=== PATIENT | male | born 1940 | race African-American/Black ===

== ENCOUNTER 2020-10-17 14:13 | Emergency (ER) | payer OTHER ==
[2020-10-17 14:25] VITALS: TEMP 97.8; BMI 25.5
[2020-10-17 16:07] LABS: HEMATOCRIT 36.5 % (35.4-49); HEMOGLOBIN 12.2 GM/dL (11.7-16.9); MCH 32.3 pg (25.7-33.7); MCHC 33.5 g/dl (32.0-35.9); MEAN CELL VOLUME 96.6 fl (80-96); MEAN PLT VOLUME 6.8 fl (7.5-11.1); PLATELET COUNT 230 K/MM3 (134-434); RBC 3.77 M/mm3 (4.00-5.60); RDW 13.4 % (11.9-15.9); WHITE BLOOD COUNT 2.8 K/mm3 (4.0-10.0)
[2020-10-17 16:30] LABS: CHLORIDE 105 mmol/L (98-107); POTASSIUM 4.4 mmol/L (3.5-5.1); SODIUM 139 mmol/L (136-145)
[2020-10-17 16:32] LABS: CALCIUM 9.4 mg/dL (8.5-10.1)
[2020-10-17 16:33] LABS: ALBUMIN 3.5 g/dl (3.4-5.0); ANION GAP 3 MMOL/L (8-16); BLOOD UREA NITROGEN 21.6 mg/dL (7-18); CO2 31 mmol/L (21-32); GLUCOSE,RANDOM 111 mg/dL (74-106); MAGNESIUM 1.8 mg/dL (1.8-2.4)
[2020-10-17 16:35] LABS: CREATININE 0.8 mg/dL (0.55-1.3); SGOT/AST 29 U/L (15-37); SGPT/ALT 38 U/L (13-61)
[2020-10-17 16:37] LABS: BILIRUBIN,TOTAL 0.4 mg/dL (0.2-1); TOT PROT 6.6 g/dl (6.4-8.2)
[2020-10-17 16:38] LABS: ALK PHOS 95 U/L (45-117)
[2020-10-17] MEDS ORDERED: SODIUM CHLORIDE 2,286 ML IV ONE (16:40)
[2020-10-17 21:12] VITALS: BP 99/54; PULSE 78
[2020-10-20 01:07] LABS: HEP B CORE AB, TOT Positive (Negative)
== END 2020-10-17 21:13 ==
LOC: JER 14:13
PROC: 0HQ0XZZ Repair Scalp Skin, External Approach (ICD-10-PCS; principal; 2020-10-17)
PROC: 3E0337Z Introduction of Electrolytic and Water Balance Substance into Peripheral Vein, Percutaneous Approach (ICD-10-PCS; 2020-10-17)
DX: S01.01XA Laceration without foreign body of scalp, initial encounter (principal)
CPT/HCPCS: 36415; 70450-TC; 72125-TC; 73523-TC-FY; 80053; 82550; 83735; 84460; 84484; 85027; 86704; 86705; 86706; 86707; 86708; 86709; 86803; 87340; 87389; 93005; 93010; 99285-25